=== PATIENT | male | born 1970 | race Caucasian/White ===

== ENCOUNTER 2024-10-26 11:59 | Day surgery (SDC) | payer OTHER, SELFPAY ==
[2024-10-26] VITALS (15 sets, daily range): BP systolic 95–156; BP diastolic 64–100; BMI 37.9
[2024-10-26 15:58] LABS: ACT-LR - POC 250 Seconds (116-155)
[2024-10-26 16:08] LABS: ACT-LR - POC 314 Seconds (116-155)
[2024-10-26 16:38] LABS: ACT-LR - POC 305 Seconds (116-155)
--- NOTE | 2024-10-26 18:29 | ITS.CL.PN ---
[facility] - Procedure Note
Procedure
Procedure Note:
CARDIAC CATHETERIZATION REPORT
Date of Procedure: 10/26/2024
Referring: Dr. Aurora Nguyen
Indication: unstable angina
PROCEDURE(S)
1. left heart catheterization
2. coronary angiography
3. IVUS LAD
4. PCI with YOLANDA to LAD
ACCESS: 6F right radial artery (closure: radial band)
CATHETERS
1. 6F JR4
2. 6F JL3.5
3. EBU 3.75 guide catheter
MODERATE SEDATION: 60 minutes of moderate sedation was utilized. An independent medical records technician was present to assist with and help manage the patient's level of consciousness and physiologic status.
HEMODYNAMIC DATA
LV 122/12 (EDP 23) mmHg
AO 123/83 (mean 93) mmHg
CORONARY ANGIOGRAPHY
Dominance: Right
LM: Large normal vessel
LAD: Large vessel giving rise to a moderate caliber D1, moderate caliber D2, small D3, and wrapping around the apex. There is a ulcerated plaque in the mid LAD just before D3 and heavy plaque burden extending from just after D1 to the mid vessel.
There is a 50% stenosis in the proximal aspect of the D2 and a 60% ostial stenosis of the D3.
LCx: Large vessel giving rise to a single large branching OM. There are mild luminal irregularities only
RCA: Large vessel giving rise to a moderate caliber RPDA and moderate caliber RPL branch. There are mild luminal irregularities only.
IVUS-guided PCI with YOLANDA to LAD
Heparin was given to achieve ACT greater than 300. The left main was intubated with an EBU 3.75 guide catheter and a Runthrough wire placed in the distal LAD. Initial lesion preparation was performed with a 2.5 x 20 mm semicompliant balloon followed
by stenting from the normal segment in the mid LAD back with a 3.5 x 38 mm [place] frontier drug-eluting stent. The small now jailed D3 was noted to no longer to have flow. There were no ST changes and the patient had no symptoms initially and given
the small size of the vessel plan was to manage expectantly. IVUS was then performed demonstrating a 3.5 mm distal reference vessel diameter, a 4.0 mm reference diameter proximal to the stent edge between the 2nd and 3rd diagonal and a 5.0 mm
reference vessel diameter between the 1st and 2nd diagonal where there was a normal vessel segment to land. A proximally overlapping 4.0 x 22 mm Emir frontier drug-eluting stent was deployed. Post dilation was performed with a 3.5 mm noncompliant
balloon from the distal stent edge back. At this point the patient was developing chest pain and flow had not return to the third diagonal. A second Runthrough wire was placed across the third diagonal and ballooning of the ostium of the diagonal
performed through stent struts with a 2.0 semicompliant balloon to 8 miranda. This resulted in scientology of AUGUSTIN-3 flow. POT was then performed from this diagonal back with the 4.0 NC balloon taken to high-pressure. Finally POT was performed from the
takeoff of the second diagonal back to the proximal stent edge with a 5.0 x 8 mm NC balloon. Final angiographic result was excellent with AUGUSTIN-3 flow in the jailed D2 and D3 branches. IVUS demonstrated full stent expansion and apposition with no
edge dissections. The wires and guide were removed and a TR band placed. The patient was loaded with 600 mg of Plavix.
RADIATION: dose 1287 mGy; DAP 85 Gy*cm2; fluoroscopy time 20.4 min
CONCLUSIONS
1. Coronary artery disease as described with severe ulcerated mid LAD lesion and diffuse heavy plaque burden from the proximal to mid LAD.
2. Successful IVUS guided PCI of the proximal to mid LAD with placement of overlapping 3.5 x 38 and 4.0 x 22 mm Emir frontier drug-eluting stents postdilated to 3.5 mm distally, 4.0 mm in the mid aspect, and 5.0 mm proximally. Successful rescue POBA
of the small jailed D3 branch with a 2.0 mm balloon restoring AUGUSTIN-3 flow.
RECOMMENDATIONS
1. Aggressive secondary prevention of coronary artery disease with high intensity statin for goal LDL less than 55 and aggressive risk factor modification
2. DAPT with aspirin and Plavix for at least 6 months but consider up to 1 year if tolerated given low bleeding risk and long stented segment
3. Cardiac rehab
Copy to: Dr. Aurora Nguyen MD (assistive technology specialist); MONICA Norris (PCP)
Signed: Twan Najera MD, PhD
[2024-10-26] MEDS: LOPRESSOR 25 MG PO (20:17)
[2024-10-27 03:48] VITALS: BP 121/60
[2024-10-27 03:55] VITALS: BMI 37.1
[2024-10-27 04:31] LABS: Hematocrit 38.4 % (39.0-52.0); Hemoglobin 13.4 g/dL (13.0-18.0); Mean Corp Hgb Conc. 34.9 g/dL (33.0-37.0); Mean Corpuscular Hgb 31.2 pg (27.0-31.0); Mean Corpuscular Volume 89.3 fL (80.0-94.0); Mean Platelet Volume 9.6 fL (7.4-10.4); Platelet Count 223 10^3/uL (130-400); White Blood Cell Count 7.3 10^3/uL (4.8-10.8)
[2024-10-27 04:55] LABS: Blood Urea Nitrogen 18 mg/dl (9-20); Calcium 9.2 mg/dl (8.4-10.2); Carbon Dioxide 28 mmol/L (22-30); Chloride 108 mmol/L (98-107); Estimated Creatinine Clearance > 125 ml/min; Glucose 89 mg/dl (70-99); HDL Cholesterol 32 mg/dl; LDL Cholesterol, Calculated 45 mg/dl; Potassium 4.3 mmol/L (3.5-5.1); Sodium 141 mmol/L (135-145); Total Cholesterol 145 mg/dl (50-199); Triglyceride 344 mg/dl (10-149); Very Low Density Lipoprotein 68 mg/dl (0-30); eGFR > 60.00
--- NOTE | 2024-10-27 05:31 | PTCARENOTE ---
Assumed care on pt at 1900, aaox3, pleasant, denies any cp, SOB or dizziness. Family at bedside. R band removed at 2114, site clean and dry, no swelling or bruising noted. SR on the monitor, HR 60's. Pox 96% RA. Ambulating to bathroom w/o issues, no
urinary complaints, urine clear yellow, good output. Labs drawn, weight and EKG obtained this morning. Call stanley within reach, POC ongoing.
--- NOTE | 2024-10-27 08:00 | W.PN.CD ---
Today's Communication / Plan
-
Coronary artery disease/successful PCI of LAD and Prober of jailed small D3 10/27/2024
- Cath site fine
- Currently feeling well.
- Ambulate
- DAPT
.
Hyperlipidemia. Statin
.
Hypertension stable
Impression / Plan
-
Patient feels well. Catheter site fine. ECG stable.
Probable discharge later today. Will have patient ambulate and review further with interventional.
Physical Exam
Vital Signs/Labs
Vital Signs
Temp Pulse Resp BP Pulse Ox
98.1 F 65 18 142/86 95
10/27/24 03:48 10/27/24 03:00 10/27/24 03:48 10/26/24 22:29 10/27/24 03:48
10/26/24 10/27/24 10/28/24
06:59 06:59 06:59
Actual Weight 120.5 kg
10/27/24 03:53
10/27/24 03:53
Triglycerides 344 mg/dl (10-149) H 10/27/24 03:53
LDL Cholesterol, Calc 45 mg/dl 10/27/24 03:53
VLDL Cholesterol, Calc 68 mg/dl (0-30) H 10/27/24 03:53
HDL Cholesterol 32 mg/dl 10/27/24 03:53
Physical Exam
Constitutional: No acute distress
Cardiovascular: Rhythm & rate is regular
Respiratory: Respiratory effort normal
GI: Soft
Other: Cath Site
Fine
Data Reviewed
-
Date of Service: October 27, 2024
Medical Decision Making: Reviewed Test Results
Medical Tests (PFT, Pathology etc): Report Reviewed by me
Labs: Labs Reviewed by me
[2024-10-27 08:28] VITALS: BP 151/80
[2024-10-27] MEDS: COZAAR 50 MG PO (08:29)
[2024-10-27] MEDS: IMDUR (EXTENDED RELEASE) 30 MG PO (08:29)
[2024-10-27] MEDS: LIPITOR 40 MG PO (08:30)
[2024-10-27] MEDS: LOW STRENGTH ASPIRIN 81 MG PO (08:30)
[2024-10-27] MEDS: PLAVIX 75 MG PO (08:30)
[2024-10-27] MEDS: LOPRESSOR 25 MG PO (08:30)
--- NOTE | 2024-10-27 09:17 | W.DS.TRANS ---
DC Summary - Digital Solutions Architect
-
Discharge Instructions:
Discharge Diagnosis/Procedures Coronary artery disease with angioplasty and
stent x2 to Left Anterior Descending artery
Diet Low Cholesterol,Low Fat,Low Sodium
Activity Other activity
Additional Activity see attached activity sheet
Driving Restrictions No driving for 24 hours
Bathing Restrictions OK to Shower
Other Services Cardiac Rehab
Instructions:
Stand-Alone Forms: DC Instructions- Cath/EP Lab
Changes to Home Medications: Yes
Discharge Medications:
DC Medications w/original date entered in [facility]
aspirin 81 mg tablet 81 mg PO DAILY 10/26/24
atorvastatin 40 mg tablet 40 mg PO DAILY 10/26/24
clopidogrel 75 mg tablet 75 mg PO DAILY #90 tabs 10/26/24
isosorbide mononitrate 30 mg tablet,extended release 24 hr 30 mg PO DAILY 10/26/24
losartan 50 mg tablet 50 mg PO DAILY 10/26/24
metoprolol tartrate 25 mg tablet 25 mg PO BID 10/26/24
nitroglycerin 0.4 mg sublingual tablet 0.4 mg sublingual [id number] PRN chest pain #25 tabs 10/26/24
Home Medication Changes
plavix and PRN nitro added
Pending Results: No
[2024-10-27 09:38] VITALS: BP 120/90
--- NOTE | 2024-10-30 09:23 | CM ---
pt dc'ed to home, no dc planning needs noted.
== END 2024-10-27 10:21 | disposition home or self-care (01) ==
LOC: CATH 11:59
PROVIDERS: Nurse Practitioner; ATTENDING PHYSICIAN Student in an Organized Health Care Education/Training Program
DX: I25.110 Atherosclerotic heart disease of native coronary artery with unstable angina pectoris (principal); E78.5 Hyperlipidemia, unspecified; I10 Essential (primary) hypertension; Z87.891 Personal history of nicotine dependence; Z95.5 Presence of coronary angioplasty implant and graft; R73.01 Impaired fasting glucose; R79.89 Other specified abnormal findings of blood chemistry; Z79.82 Long term (current) use of aspirin; Z79.02 Long term (current) use of antithrombotics/antiplatelets; Z79.899 Other long term (current) drug therapy; E66.9 Obesity, unspecified
CPT/HCPCS: 99152; 99153; 80048; 80061; 85027; 85347; 92921; 92978; 93005; 93458; C1725; C1753; C1874; C1894; C9600; Q9967

== ENCOUNTER 2024-11-22 15:11 | Outpatient (RCR) | payer OTHER, SELFPAY | END 2024-11-22 23:59 | disposition home or self-care (01) | LOC: CRHB 15:11 | PROVIDERS: ATTENDING PHYSICIAN Internal Medicine Cardiovascular Disease | DX: I25.10 Atherosclerotic heart disease of native coronary artery without angina pectoris (principal); Z95.5 Presence of coronary angioplasty implant and graft | CPT/HCPCS: G0422; G0423 ==